=== PATIENT | male | born 1965 | race African-American/Black ===

== ENCOUNTER 2020-04-08 09:38 | Day surgery (SDC) | payer OTHER ==
[2020-04-08] MEDS ORDERED: PROPOFOL INJ 200 MG/20 ML VIAL IV ONE ×2 (10:41→11:24)
[2020-04-08 12:24] VITALS: BP 109/70
--- NOTE | 2020-04-08 12:25 | Operative Report ---
Operative Report DATE OF SURGERY: 04/08/20 Operative Report: The risk, benefits and alternatives of the procedure including the risk of bleeding, perforation requiring surgery have been explained to the patient in detail and informed consent has been obtained. The patient is taken back to the operating room and placed in left, lateral decubital position. Timeout was called. Propofol medication is administered. Rectal examination is done which did not reveal any masses, tears or fissures. An Olympus videoscope was introduced into the patient's rectum. Scope was then carefully advanced all the way to the cecum. The cecum was identified by the usual anatomical landmarks of the ileocecal valve as well as the appendiceal office. Photodocumentation is obtained. Scope was then sequentially pulled back via the various segments of the colon including the ascending colon, hepatic flexure, transverse colon, s plenic flexure, descending colon and finally in to the rectosigmoid portions of the colon. Retroflexion maneuver is performed. The risks benefits and alternatives of the procedure explained to the patient in detail and informed consent is obtained.A GIF Olympus video scope was inserted into the patient's mouth and hypopharynx ,the esophagus is identified intubated and insufflated ,the scope was then advanced through the esophagus stomach and duodenum, retroflexion maneuver is done the esophagus stomach and first and second portions of the duodenum examined PREOPERATIVE DIAGNOSIS: Colorectal cancer screening. Weight loss. Epigastric discomfort POSTOPERATIVE DIAGNOSIS: Gastritis status post biopsy, right side colon Inflammation status post biopsy OPERATION: Colonoscopy with biopsy. EGD with biopsy SURGEON: GREGORIO REED ANESTHESIA: LMAC TISSUE REMOVED OR ALTERED: As noted above. COMPLICATIONS: None. ESTIMATED BLOOD LOSS: None. INTRAOPERATIVE FINDINGS: As noted above. PROCEDURE: Patient tolerated the procedure well. No immediate postprocedure complications are noted. Patient is discharged in good condition. Discharge date 04/08/2020. Discharge diet: Regular. Discharge activity: Regular. 2 to 3-week follow-up to discuss findings. Patient is instructed call the office or proceed to the emergency room should there be any further problems or questions. Wait on the pathology. If -10-year surveillance colonoscopy.
--- OUTSIDE RECORDS SUMMARY | 2020-04-08 14:32 | XMS REPORT ---
:1965 Author Organization [facility] [place] [facility] [place] [address] [place] [id number] Care Team Providers Name Role Phone Unavailable Unavailable Unavailable Allergies, Adverse Reactions, Alerts This patient has no known allergies or adverse reactions. Medications This patient has no known medications. Problems This patient has no known problems. Procedures This patient has no known procedures. Results Test Description Test Time Test Comments Text Results Atomic Results Result Comments SARS-CoV-2 RNA Resp Ql [place]+probe 2020-04-07 00:00:00 Test Item Value Reference Range Comments SARS-CoV-2 RNA Resp Ql [place]+probe Not detected [facility] Case ID: (test code = 57707-7) [id number] SARS-CoV-2 RNA Resp Ql [id number] 00:00:00 Test Item Value Reference Range Comments SARS-CoV-2 RNA Resp Ql Not detected [facility] Case [place]+probe (test code = ID: [id number]) Social History This patient has no known social history. Vital Signs This patient has no known vital signs.
== END 2020-04-08 12:37 | disposition home or self-care (01) ==
LOC: OROUT 09:38
PROVIDERS: ATTEND Internal Medicine Gastroenterology
DX: K29.50 Unspecified chronic gastritis without bleeding (principal); B96.81 Helicobacter pylori [H. pylori] as the cause of diseases classified elsewhere; K52.9 Noninfective gastroenteritis and colitis, unspecified; K20.90 Esophagitis, unspecified without bleeding; R63.4 Abnormal weight loss; Z68.1 Body mass index [BMI] 19.9 or less, adult; F17.210 Nicotine dependence, cigarettes, uncomplicated
CPT/HCPCS: 43239; 45380; 88342 ×2; 88305 ×2; 00813; J2704; 813